=== PATIENT | male | born 1975 | race Caucasian/White ===

== ENCOUNTER 2019-05-01 07:52 | Emergency (ER) | payer OTHER ==
[~2019-05-01] VITALS: Ht 180.3 cm; Wt 68.5 kg
[2019-05-01] MEDS ORDERED: LORazepam 2 mg/ml vial IV ONE (08:50)
[2019-05-01] MEDS ORDERED: normal saline 1000ML IV soln IVB ONE (08:50)
[2019-05-01 09:29] LABS: BASOPHILS # (AUTO) 0.1 X10'3 (0-0.2); BASOPHILS % (AUTO) 1.3 % (0-1); EOSINOPHILS % (AUTO) 0.2 % (0-6); HEMATOCRIT 36.2 % (42.0-52.0); HEMOGLOBIN 11.8 g/dl (14.0-17.9); LYMPHOCYTES # (AUTO) 0.5 X10'3 (1.1-4.8); LYMPHOCYTES % (AUTO) 8.4 % (21-51); MEAN CORPUSCULAR HEMOGLOBIN 28.2 PG (27.0-31.0); MEAN CORPUSCULAR HGB CONC 32.6 g/dL (33.0-36.5); MEAN CORPUSCULAR VOLUME 86.4 FL (78-98); MEAN PLATELET VOLUME 7.3 FL (7.4-10.4); MONOCYTES # (AUTO) 0.7 X10'3 (0-0.9); MONOCYTES % (AUTO) 11.6 % (2-12); NEUTROPHILS # (AUTO) 4.5 X10'3 (1.8-7.7); NEUTROPHILS % (AUTO) 78.5 % (42-75); PLATELET COUNT 260 X10'3 (140-440); RED BLOOD COUNT 4.19 X10'6 (4.70-6.10); RED CELL DISTRIBUTION WIDTH 18.6 % (11.5-14.5); WHITE BLOOD COUNT 5.8 X10'3 (4.5-11.0)
[2019-05-01 09:45] LABS: ALANINE AMINOTRANSFERASE 30 U/L (12-78); ALBUMIN 3.6 G/DL (3.4-5.0); ALBUMIN/GLOBULIN RATIO 1.1 (1.1-1.5); ALKALINE PHOSPHATASE 92 IU/L (46-116); ANION GAP 11 (8-16); ASPARTATE AMINO TRANSFERASE 31 U/L (10-37); BILIRUBIN,TOTAL 0.6 MG/DL (0.1-1.0); BLOOD UREA NITROGEN 7 MG/DL (7-18); BUN/CREATININE RATIO 6.7 (5.4-32.0); CALCIUM 7.8 MG/DL (8.5-10.1); CHLORIDE 104 MMOL/L (99-107); CREATININE 1.05 MG/DL (0.60-1.10); GLUCOSE 86 MG/DL (70-104); POTASSIUM 3.7 MMOL/L (3.5-5.1); SODIUM 139 MMOL/L (135-145); TOTAL CARBON DIOXIDE 23.9 MMOL/L (24-32); TOTAL PROTEIN 6.8 G/DL (6.4-8.2); eGFR 77 ML/MIN
[2019-05-01 09:51] LABS: ETHANOL < 0.010 GM/DL (0.0-0.010)
[2019-05-01 09:53] LABS: ACETAMINOPHEN < 2.0 UG/ML (10-30)
--- NOTE | 2019-05-01 09:54 | NUR ---
PT MOVED FROM BED 07 TO BED 14 BY [facility]CHO DIRECTOR TOXICOLOGY, PT PLACED IN GREEN SCRUBS BY DIRECTOR TOXICOLOGY
[2019-05-01] MEDS ORDERED: DESV50TA PO ×2 (10:16→19:21)
[2019-05-01] MEDS ORDERED: NALT50TA PO (10:16)
[2019-05-01] MEDS ORDERED: BUSP10TA11 PO ×2 (10:16→19:21)
[2019-05-01] MEDS ORDERED: ESZO3TAB40 PO (10:16)
[2019-05-01] MEDS ORDERED: HYDR-4069 PO (10:16)
[2019-05-01] MEDS ORDERED: LAMO150T2 PO ×2 (10:16→19:21)
[2019-05-01] MEDS ORDERED: HYDR-3686 PO (10:16)
[2019-05-01 10:22] LABS: CLARITY,URINE CLEAR (Clear); COLOR,URINE YELLOW (Yellow); GLUCOSE, URINE NEGATIVE (Neg); KETONES,URINE NEGATIVE (Neg); LEUKOCYTE ESTERASE ,URINE NEGATIVE (Neg); NITRITES, URINE NEGATIVE (Neg); OCCULT BLOOD,URINE NEGATIVE (Neg); PROTEIN,URINE TRACE mg/dl (Neg); UROBILINOGEN,URINE 0.2 E.U/dL (0.2-1.0)
[2019-05-01 10:27] LABS: UA COLLECTION TYPE URINAL; URINE AMPHETAMINE SCREEN NEGATIVE (Neg); URINE BARBITUATE SCREEN NEGATIVE (Neg); URINE BENZODIAZEPINES SCREEN NEGATIVE (Neg); URINE CANNABINOID SCREEN POSITIVE (Neg); URINE COCAINE SCREEN NEGATIVE (Neg); URINE METHADONE SCREEN NEGATIVE (Neg); URINE OPIATE SCREEN NEGATIVE (Neg); URINE PHENCYCLIDINE SCREEN NEGATIVE (Neg)
[2019-05-01 10:29] LABS: BACTERIA,URINE NONE SEEN /HPF (Neg); MUCUS STRANDS MODERATE /LPF (Neg); RBC,URINE 0-2 /HPF (0-2); SQUAMOUS EPITHELIAL CELL,UR FEW /LPF (FEW); WBC,URINE 0-4 /HPF (0-4)
--- NOTE | 2019-05-01 10:55 | NUR ---
PACKET HAS BEEN FAXED TO [facility]
[2019-05-01] MEDS ORDERED: lamoTRIgine 25mg tablet PO SCH (12:27)
[2019-05-01] MEDS ORDERED: busPIRone 5mg tablet PO SCH (13:00)
[2019-05-01] MEDS ORDERED: venlafaxine 25mg tablet PO SCH (13:00)
--- NOTE | 2019-05-01 13:45 | NUR ---
PT PLEASENT AND CALM.PT MEDICATION EXPLAINED AND GIVEN TO THE PT ,PT VERBALIZED UNDERSTANDING DENIES ANY CONCERN,PT OFFERED THE LUNCH TRAY PT SITTING UP IN BED EATING HIS FOOD.WILL CONT TO MONITOR.
[2019-05-01] MEDS ORDERED: LORazepam 1 MG tablet PO ONE (14:05)
[2019-05-01] MEDS ORDERED: hydrOXYzine 25 MG tablet PO SCH (16:00)
[2019-05-01 17:08] VITALS: BP 131/80
--- NOTE | 2019-05-01 17:12 | NUR ---
PT VS UPDATED BY [facility] ED SITTERS, PT CALM AND COOPERATIVE DURING INTERACTION, PT NOW LYING ON LEFT SIDE WITH EYES CLOSED RESTING, RESPIRATIONS SPONTENOUS, EVEN AND UNLABORED, NO S/S OF DISTRESS, DISCOMFORT OR AGITATION AT THIS TIME, PT IN LINE OF SITE OF NURSES STATION, WILL CONTINUE TO OBSERVE AND MONITOR PT.
[2019-05-01] MEDS ORDERED: TRAZ-251 PO (19:21)
[2019-05-01] MEDS ORDERED: zolpidem 5mg tablet PO SCH (21:00)
[2019-05-02] MEDS ORDERED: naltrexone 50mg tablet PO SCH (08:00)
== END 2019-05-01 20:14 ==
LOC: ER 07:53
DX: F44.81 Dissociative identity disorder (principal); F10.159 Alcohol abuse with alcohol-induced psychotic disorder, unspecified; E86.0 Dehydration; G40.909 Epilepsy, unspecified, not intractable, without status epilepticus; Z56.0 Unemployment, unspecified; Z88.0 Allergy status to penicillin; Z79.899 Other long term (current) drug therapy; Y90.0 Blood alcohol level of less than 20 mg/100 ml
CPT/HCPCS: 36415; 80053; 80305; 80320; 80329; 81001; 84443; 85025; 96361; 96374; 99284; J2060; J7030